=== PATIENT | male | born 1945 | race Caucasian/White ===

== ENCOUNTER → 2017-07-10 | Outpatient (CLI) | payer MEDICARE, OTHER | LOC: GMAL 14:42 | PROVIDERS: ATTEND Family Medicine | DX: I50.9 Heart failure, unspecified (principal) ==

== ENCOUNTER 2017-09-18 04:11 | Emergency (ER) | payer MEDICARE, OTHER ==
--- NOTE | 2017-09-18 04:29 | ED.PDOC ---
History of Present Illness - General Chief Complaint: Abdominal Pain Stated Complaint: Left flank/abd pain/groin pain Time Seen by Provider: 09/18/17 04:29 Information Source: patient Exam Limitations: no limitations - History of Present Illness Initial Comments: Kyle Tai 72 y/o male stated that he had "achy" left flank pain since Monday afternoon then eased off thinking he might be constipated took stool softener but pain still lingered which radiated down his left groin and left leg.Denies dysuria,hematuria,diarrhea ,N/V,fever.Has Hx of a.fib w/ pacemaker.Had also used heating pad prior to coming here. Abdominal Pain Onset Location: flank - left, other - see hpi Pain Radiation: groin, other - left thigh Quality: steady, other - achy Timing/Duration: constant, other - see hpi Improving Factors: nothing Worsening Factors: nothing Associated Symptoms: other - see hpi Review of Systems - Review of Systems Constitutional: States: no symptoms reported EENTM: States: no symptoms reported Respiratory: States: no symptoms reported Cardiology: States: no symptoms reported Gastrointestinal/Abdominal: States: see HPI Genitourinary: States: no symptoms reported Musculoskeletal: States: no symptoms reported Skin: States: no symptoms reported Neurological: States: no symptoms reported Endocrine: States: no symptoms reported Hematologic/Lymphatic: States: no symptoms reported Past Medical History (General) - Patient Medical History Hx Seizures: No Hx Stroke: No Hx Dementia: No Hx Asthma: No Hx of COPD: No Hx Cardiac Disorders: Yes - AFib Hx Congestive Heart Failure: No Hx Pacemaker: Yes - placed 11 years ago Hx Hypertension: No Hx Thyroid Disease: No Hx Diabetes: No Hx Gastroesophageal Reflux: No Hx Renal Disease: No Hx Cancer: No Hx of HIV: No Hx Hepatitis C: No Hx MRSA: No Surgical History: other - cardiac -mini May for his a.fib,left knee - Vaccination History Hx Tetanus, Diphtheria Vaccination: No Hx Influenza Vaccination: No Hx Pneumococcal Vaccination: No - Social History Hx Tobacco Use: No Hx Alcohol Use: Yes - occasional Hx Physical Abuse: No Hx Emotional Abuse: No - Activities of Daily Living Patient Lives Alone: No Family Medical History - Family History Mother Living Status: Hx Cardiac Disease: Yes - brother,dad Hx Family Cancer: Yes - mom-ovarian,cervical,pancreatic Physical Exam - Physical Exam General Appearance: Alert, Comfortable, No apparent distress Eyes, Ears, Nose, Throat Exam: normal ENT inspection Neck: non-tender, supple, normal inspection Respiratory: chest non-tender, lungs clear, normal breath sounds, no respiratory distress Cardiovascular/Chest: normal peripheral pulses, regular rate, rhythm, no murmur Peripheral Pulses: No deficit Gastrointestinal/Abdominal: normal bowel sounds, non tender, soft, no organomegaly Back Exam: no CVA tenderness, no vertebral tenderness Extremity: normal range of motion, non-tender, no pedal edema, no calf tenderness Neurologic: no motor/sensory deficits, alert, oriented x 3 Skin Exam: normal color, warm/dry Lymphatic: no adenopathy Progress - Progress Progress: 09/18/17 04:42 Vital Signs - 8 hr 09/18/17 04:19 Temperature 98.2 F Pulse Rate [ 86 monitor] Respiratory 20 Rate Blood Pressure 164/90 [Left Arm] O2 Sat by Pulse 96 Oximetry 09/18/17 05:39 Stated his left flank pain almost gone.Discuss result of abd/p scan -with 2.5mm left distal ureteral stone - Results/Orders Results/Orders: 09/18/17 04:30 IV Care:Saline Lock per Protoc QSHIFT Abdoment/Pelvis w/o Contrast [CT] Stat Laboratory Results - last 24 hr 09/18/17 09/18/17 04:30 04:45 WBC 13.1 H RBC 4.91 Hgb 15.4 Hct 45.5 MCV 92.8 MCH 31.3 H MCHC 33.7 RDW 14.4 Plt Count 185 MPV 7.8 Absolute Neuts (auto) 10.20 H Absolute Lymphs (auto) 1.40 Absolute Monos (auto) 1.40 H Absolute Eos (auto) 0.10 Absolute Basos (auto) 0.00 Neutrophils % 77.8 Lymphocytes % 10.4 L Monocytes % 10.7 H Eosinophils % 0.8 L Basophils % 0.3 PT 10.2 INR 1.02 PTT (SP) 27.6 Sodium 140 Potassium 4.5 Chloride 102 Carbon Dioxide 28 Anion Gap 14.5 BUN 25 H Creatinine 1.48 H BUN/Creatinine Ratio 16.9 Random Glucose 137 H Serum Osmolality 285.9 Calcium 8.9 Magnesium 2.1 Total Bilirubin 0.7 Direct Bilirubin 0.2 Indirect Bilirubin 0.5 AST 30 ALT 22 Alkaline Phosphatase 48 Creatine Kinase 137 CK-MB (CK-2) 3.5 CK-MB (CK-2) % Not Reportable Troponin I < 0.02 Serum Total Protein 6.9 Albumin 4.1 Urine Color Yellow Urine Appearance Clear Urine pH 5.5 Ur Specific [place] >= 1.030 Urine Protein Negative Urine Glucose (UA) Negative Urine Ketones 15 H Urine Blood Moderate H Urine Nitrite Negative Urine Bilirubin Small H Urine Urobilinogen 0.2 Ur Leukocyte Esterase Negative Urine RBC 10-20 H Urine WBC 1-3 Ur Epithelial Cells 0 Urine Bacteria 0 Urine Mucus Small - EKG/XRAY/CT CT Ordered: Yes - abd/p-2.5mm distal ureteral stone left Departure - Departure Clinical Impression: Acute left flank pain, Calculus of distal left ureter Hematuria Qualifiers: Hematuria type: other microscopic Qualified Code(s): R31.29 - Other microscopic hematuria; R31.2 - Other microscopic hematuria Time of Disposition: 05:43 Disposition: Discharge to Home or Self Care Condition: Fair Departure Forms: ED Discharge - Pt. Copy, Patient Portal Self Enrollment Instructions: Kidney Stones (DC), How to Strain Your Urine, Kidney Stones in Adults Referrals: Phi Fuentes III, MD [Primary Care Provider] - 1-2 Weeks Prescriptions: Acetamin W/Cod #3 Tab [Tylenol w/CODEINE #3] 1 ea PO Q6HRS PRN #20 tab PRN Reason: Pain Tamsulosin [Flomax] 0.4 mg PO QD #7 cap Home Medications: Ambulatory Orders Acetamin W/Cod #3 Tab [Tylenol w/CODEINE #3] 1 ea PO Q6HRS PRN #20 tab 09/18/17 Aspirin [Aspirin Adult Low Dose] 81 mg PO DAILY 09/18/17 Celecoxib [Celecoxib] 200 mg PO DAILY 09/18/17 Metoprolol Succinate [Metoprolol Succinate ER] 50 mg PO DAILY 09/18/17 Multiple Vitamins W/ Minerals [Multivitamin Adults] 1 tab PO DAILY 09/18/17 Tamsulosin [Flomax] 0.4 mg PO QD #7 cap 09/18/17 Additional Instructions: Call up primary Md's office today 18 September 2017 for UROLOGY REFERRAL with Dr. Sterling today AM
[2017-09-18] MEDS ORDERED: SODIUM CHLORIDE 0.9% 500ML 500 ML IVS ONE (04:30)
[2017-09-18] MEDS ORDERED: KETOROLAC TROMETHAMINE INJ 30 MG/ML VIAL IM ONE (04:30)
[2017-09-18] MEDS ORDERED: HYDROcodone 10MG/APAP 325MG 1 EA TAB PO ONE (04:30)
[2017-09-18] MEDS ORDERED: KETOROLAC TROMETHAMINE INJ 30 MG/ML VIAL IV ONE (04:38)
[2017-09-18] MEDS ORDERED: TAMSULOSIN 0.4 MG CAP PO ONE (05:23)
--- NOTE | 2017-09-18 05:26 | CT ---
NONCONTRAST ABDOMEN AND PELVIC CT EXAMINATION. HISTORY: Left flank pain. PROCEDURE: Using helical technique, thin section axial images were performed through the abdomen and pelvis without the administration of intravenous or oral contrast material. FINDINGS: There is moderate to severe obstruction of the left urinary system secondary to a 2.5 mm calcified stone in the far downstream left ureter. The right urinary system is grossly normal on this noncontrast examination. No evidence of appendicitis, diverticulitis, inflammatory bowel disease, bowel obstruction, extraluminal bowel gas or retroperitoneal hemorrhage. No ascites, free pelvic fluid or evidence of intra-abdominal abscess on this noncontrast examination. The fluid-filled gallbladder is normal. The liver, spleen, pancreas, stomach and duodenum are grossly normal on this noncontrast examination. Mild atherosclerotic calcification of the origin the right renal artery. Mild atherosclerotic calcification in the infrarenal abdominal aorta and common iliac arteries. No abdominal aortic aneurysm. Greatest AP diameter of the infrarenal abdominal aorta measures 2.0 cm. No imaging follow-up recommended. Bones appear normal for age. IMPRESSION: 1. Moderate to severe obstruction of the left urinary system secondary to a 2.5 mm calcified stone in the far downstream left ureter. 2. Mild atherosclerotic calcification in the abdominal aorta without aneurysm. No imaging follow-up recommended. If clinical concern persists, post intravenous contrast and post oral contrast abdomen and pelvic CT examination should be performed for further evaluation. This exam was performed according to our departmental dose-optimization program, which includes automated exposure control, adjustment of the mA and/or kV according to patient size and/or use of iterative reconstruction technique. AAA Size: Follow-up Recommendation (1): 2.6 - 2.9 cm Every 5 years (2) 3.0 - 3.4 cm Every 3 years 3.5 - 3.9 cm Every 12 months 4.0 - 4.4 cm Every 12 months, vasc consult rec 4.5 - 5.4 cm Every 6 months, vasc consult rec >=5.5 cm Referral to vascular surgeon recommended (1)Based upon the Society for Vascular Surgery Guidelines: J Vasc Surg. 2009 Nov;50(4 Suppl):S2-49 (2)For aortas of max sourav of 2.6-2.9 cm that meet criteria for AAA (>= 1.5 x proximal normal segment) Electronically signed by: Devaughn Rogers MD 09/18/2017 5:24 AM CDT
[2017-09-18] MEDS ORDERED: HYDROCOD/APAP 10/325 (ER DISP) # 3 tablets PO ONE (05:45)
[2017-09-18 17:47] VITALS: BP 157/91; TEMP 98.2; O2SAT 96
== END 2017-09-18 05:59 | disposition home or self-care (01) ==
LOC: ER 04:11
DX: N20.1 Calculus of ureter (principal); R31.29 Other microscopic hematuria; I48.91 Unspecified atrial fibrillation; Z95.0 Presence of cardiac pacemaker
CPT/HCPCS: 36415; 74176; 80048; 80076; 81001; 82550; 82553; 84484; 85025; 85610; 85730; J1885; J7040

== ENCOUNTER → 2019-02-04 | Outpatient (CLI) | payer MEDICARE, OTHER | LOC: LAB.O 09:18 | PROVIDERS: ATTEND Specialist | DX: E88.81 Metabolic syndrome and other insulin resistance (principal); R06.02 Shortness of breath ==